=== PATIENT | female | born 1990 | race Caucasian/White ===

== ENCOUNTER 2019-12-09 05:48 | Inpatient (IN) ==
[2019-12-09] MEDS ORDERED: Ondansetron 4 MG/2 ML VIAL IVP PRN ×2 (05:52→08:02)
[2019-12-09] MEDS ORDERED: Azithromycin 500 MG in 0.9 % Sodium Chloride 250 ML IVPB ONE (05:52)
[2019-12-09] MEDS ORDERED: Naloxone 0.4 MG/ML INJ IVP PRN ×2 (05:52→08:02)
[2019-12-09] MEDS ORDERED: Metoclopramide 10 MG/2 ML VIAL IVP PRN (05:52)
[2019-12-09] MEDS ORDERED: Famotidine 20 MG/2 ML VIAL IVP PRN (05:52)
[2019-12-09] MEDS ORDERED: Oxytocin 20 units/ LR 1000 mL 20 UNIT/1,000 ML BAG IVC SCH ×2 (06:00→21:21)
[2019-12-09] MEDS: Ringers Solution, Lactated 1,000 ML IVC SCH ×2 (06:30→11:12)
[2019-12-09 06:34] LABS: Basophils # 0.1 K/mcL (0.0-0.2); Basophils % 0.6 %; Eosinophils # 0.1 K/mcL (0.0-0.6); Eosinophils % 0.6 %; Hemoglobin 11.3 g/dL (11.5-15.4); Immature Granulocytes % 0.6 % (0-4); Lymphocytes # 3.6 K/mcL (0.6-4.6); Lymphocytes % 33.3 %; Mean Corpuscular HGB Conc 33.2 g/dL (31.6-35.5); Mean Corpuscular Hemoglobin 30.1 pg (28.0-33.3); Mean Corpuscular Volume 90.4 fL (83.0-100.0); Monocytes # 0.6 K/mcL (0.0-1.3); Monocytes % 5.2 %; Neutrophils # 6.4 K/mcL (1.6-8.9); Platelet Count 276 K/mcL (140-400); Red Blood Count 3.76 M/mcL (3.82-4.97); Red Cell Distribution Width 12.6 % (11.5-14.5); Segmented Neutrophils % 59.7 %; White Blood Count 10.8 K/mcL (4.3-11.1)
[2019-12-09] MEDS ORDERED: Ropivacaine/PF 0.2% 20 ML VIAL EP ONE (08:02)
[2019-12-09] MEDS ORDERED: EPHEDrine 50 MG/ML VIAL IVP PRN (08:02)
[2019-12-09] MEDS ORDERED: Epidural Premix (fent/bupiv) 110 ML EP SCH (08:15)
[2019-12-09] MEDS ORDERED: Ropivacaine/PF 0.2% 20 ML VIAL ONE ×2 (11:21→16:46)
[2019-12-09 11:49] LABS: Amphetamine Screen,Urine Negative ng/mL (Cutoff=1000); Barbiturate Screen,Urine Negative ng/mL (Cutoff=200); Benzodiazepines Screen,Urine Negative ng/mL (Cutoff=200); Cannabinoid Screen,Urine Negative ng/mL (Cutoff = 50); Cocaine Screen,Urine Negative ng/mL (Cutoff= 300); Opiate Screen,Urine Negative ng/mL (Cutoff=300); Phencyclidine Screen,Urine Negative ng/mL (Cutoff=25)
[2019-12-09] MEDS ORDERED: Sennosides 8.6 MG TABLET PO PRN (21:21)
[2019-12-09] MEDS ORDERED: Acetaminophen 325 MG TABLET PO PRN (21:21)
[2019-12-09] MEDS ORDERED: Benzocaine/Menthol 56 GM AEROSOL SPRAY TP PRN (21:21)
[2019-12-09] MEDS ORDERED: Lanolin 7 G OINT...G. TP PRN (21:21)
[2019-12-09] MEDS: Ibuprofen 600 MG TABLET PO PRN (21:31)
[2019-12-10] MEDS: Ibuprofen 600 MG TABLET PO PRN (05:54)
[2019-12-10 06:05] LABS: Basophils # 0.1 K/mcL (0.0-0.2); Basophils % 0.4 %; Eosinophils # 0.1 K/mcL (0.0-0.6); Eosinophils % 0.4 %; Hematocrit 29.2 % (35.3-44.9); Immature Granulocytes % 0.5 % (0-4); Lymphocytes # 3.1 K/mcL (0.6-4.6); Lymphocytes % 22.3 %; Mean Corpuscular HGB Conc 32.5 g/dL (31.6-35.5); Mean Corpuscular Hemoglobin 28.9 pg (28.0-33.3); Mean Corpuscular Volume 88.8 fL (83.0-100.0); Mean Platelet Volume 11.1 fL (9.4-12.4); Monocytes # 0.8 K/mcL (0.0-1.3); Monocytes % 5.8 %; Neutrophils # 9.9 K/mcL (1.6-8.9); Platelet Count 227 K/mcL (140-400); Red Blood Count 3.29 M/mcL (3.82-4.97); Red Cell Distribution Width 12.6 % (11.5-14.5); Segmented Neutrophils % 70.6 %
[2019-12-10 06:24] LABS: Hemoglobin 9.5 g/dL (11.5-15.4)
[2019-12-10 08:00] VITALS: BP 115/69
[2019-12-10] MEDS ORDERED: Prenatal Vit/FA 1 EACH TABLET PO SCH (09:00)
== END 2019-12-10 19:03 | disposition home or self-care (01) | DRG 807 ==
LOC: 1NENULAB 05:48 → 1NENUOBS 21:27
PROVIDERS: ADMIT Obstetrics & Gynecology; ATTEND Obstetrics & Gynecology